=== PATIENT | female | born 1990 | race Caucasian/White ===

== ENCOUNTER 2017-03-03 14:53 | Emergency (ER) ==
--- NOTE | 2017-03-03 15:01 | ED.PDOC ---
General ED Provider: Dr. DONAVAN MARTINEZ JR Chief Complaint: Foot Pain/Injury Stated Complaint: 26 yo wf struck dorsum of left foot on raised walk pain into calf with ambulation tender 2,3,mt's tender distal tarsals nonfocal malleoli and calf nontender denies medical. WALKING DOWN SIDEWALK AND LEFT FOOT BENT FORWARD. CAUGHT SELF. SCRAPED TOP OF FOOT ON SIDEWALK[ End ] Time Seen by Physician: 15:01 Mode of Arrival: Ambulance Information Source: Patient Exam Limitations: No limitations Nursing and Triage Documentation Reviewed and Agree: No Review of Systems - Review Of Systems Constitutional: Reports: No symptoms Eyes: Reports: No symptoms Ears, Nose, Mouth, Throat: Reports: No symptoms Respiratory: Reports: No symptoms Cardiac: Reports: No symptoms GI: Reports: No symptoms : Reports: No symptoms Musculoskeletal: Reports: Joint pain, Joint swelling Skin: Reports: Lesions (dorsal foot abrasion) Neurological: Reports: No symptoms Endocrine: Reports: No symptoms Hematologic/Lymphatic: Reports: No symptoms All Other Systems: Other Past Medical History - Past Medical History Previously Healthy: Yes Endocrine: Reports: None Cardiovascular: Reports: None Respiratory: Reports: None Hematological: Reports: None Gastrointestinal: Reports: None Genitourinary: Reports: None Neuro/Psych: Reports: Anxiety Musculoskeletal: Reports: None Cancer: Reports: None - Surgical History General Surgical History: Reports: None - Family History Family History: Reports: Unknown - Social History Pt Occupation: none self employed Physical Exam - Physical Exam Appearance: Well-appearing, Thin Pain Distress: Moderate Neck: Supple Respiratory: Airway patent Critical Care Note - Critical Care Note Total Time (mins): 0 Course - Course Orders, Labs, Meds: Orders Category Date Time Status ANKLE, LEFT MIN 3 VIEWS Stat RADS 03/03/17 14:57 Completed FOOT, LEFT 3 VIEWS Stat RADS 03/03/17 14:57 Completed Vital Signs: Temp Pulse Resp BP Pulse Ox 03/03/17 14:57 97.6 F 67 16 96/60 100 Departure - Departure Time of Disposition: 15:57 Disposition: HOME SELF-CARE Discharge Problem: Injury of foot Instructions: Contusion in Adults (ED), Abrasion (ED) Condition: Good Pt referred to PMD for follow-up: Yes Additional Instructions: limit weight for two to three days ice 20 minutes three times a day elevate leg above level of heart may use crutches may use fracture shoe no fracture seen recheck one week PMD recheck foot may use Naprosyn for pain [place] for pain not controlled Prescriptions: Hydrocodone Bit/Acetaminophen [[place] 5-325] 1 - 2 tab PO Q6HR PRN #12 tablet PRN Reason: pain Naproxen [Naprosyn] 500 mg PO Q12HR PRN #30 tablet PRN Reason: PAIN Allergies/Adverse Reactions: Allergies ketorolac [From Toradol] Adverse Reaction (Verified 03/03/17 14:57) naproxen Adverse Reaction (Verified 03/03/17 14:57) Penicillins Adverse Reaction (Verified 03/03/17 14:57) tramadol [From Ultram] Adverse Reaction (Verified 03/03/17 14:57) Home Medications: Ambulatory Orders Hydrocodone Bit/Acetaminophen [[place] 5-325] 1 - 2 tab PO Q6HR PRN #12 tablet Naproxen [Naprosyn] 500 mg PO Q12HR PRN #30 tablet 03/03/17
[2017-03-03 15:04] VITALS: BP 96/60; TEMP 97.6; BMI 21.4
--- NOTE | 2017-03-03 15:36 | DI ---
Exam: Three x-rays of the left ankle. Comparison: None available. Reason for exam: Struck foot on recent area with pain. FINDINGS: No acute fracture or malalignment. The talar dome is intact. There is no widening of the medial or lateral clear space. Impression: No acute fracture or dislocation in the left ankle
--- NOTE | 2017-03-03 15:36 | DI ---
Exam: Three x-rays of the left foot. Comparison: None available. Reason for exam: Tender second and third metatarsals. FINDINGS: No acute fracture or malalignment. The cortices are intact. The joint spaces are well ma intained. No unexplained calcific soft tissue densities or radiopaque retained foreign bodies. Impression: No acute fracture or dislocation in the left foot
[2017-03-03] MEDS ORDERED: NORCO 5-325 PO STA (15:54)
== END 2017-03-03 16:40 | disposition home or self-care (01) ==
LOC: ED 14:53 → EDBD 14:53 → ED 16:40
DX: S90.812A Abrasion, left foot, initial encounter (principal); W19.XXXA Unspecified fall, initial encounter; M25.572 Pain in left ankle and joints of left foot; S90.32XA Contusion of left foot, initial encounter
CPT/HCPCS: 99283